=== PATIENT | female | born 2000 | race Caucasian/White ===

== ENCOUNTER 2022-09-04 21:37 | Inpatient (IN) | payer MEDICAID ==
[~2022-09-04] VITALS: Ht 154.9 cm; Wt 76.7 kg
[2022-09-04 21:54] VITALS: BP 113/55
[2022-09-04] MEDS ORDERED: IBUPROFEN 800 MG TAB PO PRN (22:10)
[2022-09-04] MEDS ORDERED: LACTATED RINGERS 1,000 ML IV SCH (22:10)
[2022-09-04] MEDS ORDERED: fentaNYL citrate 0.05 MG/ML VIAL ONE ×2 (22:18→23:23)
[2022-09-04] MEDS ORDERED: MORPHINE PRES FREE 5 MG/10 ML AMP IV ONE (22:18)
[2022-09-04] MEDS ORDERED: METHYLERGONOVINE 0.2 MG/ML AMP ONE (22:19)
[2022-09-04] MEDS ORDERED: ceFAZolin 2,000 MG VIAL ONE (22:21)
[2022-09-04] MEDS ORDERED: ONDANSETRON 4 MG/2 ML VIAL IVP PRN (23:05)
[2022-09-04] MEDS ORDERED: diphenhydrAMINE 50 MG/ML VIAL IVP PRN (23:05)
[2022-09-04] MEDS ORDERED: KETOROLAC 60 MG/2 ML VIAL IM PRN (23:05)
[2022-09-05] MEDS ORDERED: CARBOPROST 250 MCG/ML AMP IM PRN (01:15)
[2022-09-05] MEDS ORDERED: OXYTOCIN 20 UNITS in LACTATED RINGERS 1,000 ML IV SCH (01:15)
[2022-09-05] MEDS ORDERED: ONDANSETRON 4 MG/2 ML VIAL IVP PRN (01:15)
[2022-09-05] MEDS ORDERED: diphenhydrAMINE 50 MG/ML VIAL IVP PRN (01:15)
[2022-09-05] MEDS ORDERED: NALOXONE 0.4 MG/ML VIAL IVP PRN ×3 (01:15)
[2022-09-05] MEDS ORDERED: MEPERIDINE 25 MG/ML SYR IVP PRN (01:15)
[2022-09-05] MEDS ORDERED: HYDROmorphone 1 MG/ML AMP IVP PRN (01:15)
[2022-09-05] MEDS ORDERED: METHYLERGONOVINE 0.2 MG/ML AMP IM PRN ×2 (01:15)
[2022-09-05] MEDS ORDERED: LACTATED RINGERS 1,000 ML IV SCH (01:15)
[2022-09-05] MEDS ORDERED: OXYTOCIN 20 UNITS/LR PREMIX 1,000 ML IV ONE (04:52)
[2022-09-05] MEDS: KETOROLAC 30 MG/ML VIAL IM/IVP SCH ×3 (06:00→18:00)
[2022-09-05] MEDS: OXYTOCIN 10 UNITS in LACTATED RINGERS 1,000 ML IV SCH ×2 (06:05→14:18)
[2022-09-05 06:42] LABS: BASOPHILS % (AUTO) 0.2 % (0.0-2.0); HEMATOCRIT 28.5 % (36-48); HEMOGLOBIN 9.4 g/dL (12.0-16.0); LYMPHOCYTES # (AUTO) 0.5 K/uL (2.5-16.5); LYMPHOCYTES % (AUTO) 3.1 % (20.5-51.1); MEAN CORPUSCULAR HEMOGLOBIN 28 pg (27-31); MEAN CORPUSCULAR HGB CONC 33 g/dL (33-37); MEAN CORPUSCULAR VOLUME 84.3 fL (80-94); MONOCYTES # (AUTO) 0.9 K/uL (0.8-1.0); MONOCYTES % (AUTO) 5.2 % (1.7-9.3); NEUTROPHILS # (AUTO) 15.6 K/uL (1.8-7.7); NEUTROPHILS % (AUTO) 91.5 % (42.2-75.2); PLATELET COUNT (AUTO) 217 K/uL (140-450); RED BLOOD CELL COUNT(AUTO) 3.38 MIL/uL (4.20-5.40); RED CELL DISTRIBUTION WIDTH 16.1 % (11.6-13.7); WHITE BLOOD COUNT (AUTO) 17.1 K/uL (4.8-10.8)
[2022-09-06] MEDS: oxyCODONE/APAP 5/325 MG 1 TAB TAB PO PRN ×3 (02:12→17:41)
[2022-09-06] MEDS: KETOROLAC 30 MG/ML VIAL IM/IVP SCH ×2 (06:00)
[2022-09-06] MEDS: bisacodyL 10 MG SUPP RC SCH (09:00)
--- NOTE | 2022-09-06 10:15 | NUR ---
PATIENT HAS BEEN SCREENED AND CATEGORIZED LOW NUTRITION RISK. PATIENT WILL BE SEEN WITHIN 7 DAYS OF ADMISSION. 09/11/22 REVIEWED BY ZOEY VAZ[address]Z [address]
[2022-09-06] MEDS ORDERED: CAMERA MC ONE (20:18)
[2022-09-07] MEDS: oxyCODONE/APAP 5/325 MG 1 TAB TAB PO PRN ×2 (00:38→10:47)
[2022-09-07] MEDS: bisacodyL 10 MG SUPP RC SCH (09:00)
== END 2022-09-07 13:25 | disposition home or self-care (01) | DRG 540 ==
LOC: MLD 21:37 → MFCC 09-05 00:50
PROVIDERS: ADMIT Obstetrics & Gynecology; ATTEND Obstetrics & Gynecology
PROC: 10D00Z1 Extraction of Products of Conception, Low, Open Approach (ICD-10-PCS; principal; 2022-09-05)
PROC: 3E0S3BZ Introduction of Anesthetic Agent into Epidural Space, Percutaneous Approach (ICD-10-PCS; 2022-09-05)
PROC: 00HU33Z Insertion of Infusion Device into Spinal Canal, Percutaneous Approach (ICD-10-PCS; 2022-09-05)
PROC: 3E0234Z Introduction of Serum, Toxoid and Vaccine into Muscle, Percutaneous Approach (ICD-10-PCS; 2022-09-05)
DX: O82 Encounter for cesarean delivery without indication (principal); D62 Acute posthemorrhagic anemia; Z37.0 Single live birth; Z3A.39 39 weeks gestation of pregnancy; Z88.7 Allergy status to serum and vaccine
CPT/HCPCS: 36415; 85025; J1885; J2210; J2590; J3010; J7120